=== PATIENT | female | born 1995 | race Caucasian/White ===

== ENCOUNTER 2017-04-13 10:35 | Outpatient (CLI) | payer OTHER ==
[~2017-04-13] VITALS: Ht 157.5 cm; Wt 51.8 kg
[2017-04-13 10:55] VITALS: BP 103/66; PULSE 73; TEMP 97.6
[2017-04-13] MEDS ORDERED: TOPAMAX 100MG100 M1 PO (11:02)
[2017-04-13] MEDS ORDERED: CALAN80 MG PO (11:03)
== END 2017-04-13 15:00 | disposition home or self-care (01) ==
LOC: COL.CAR 10:35
DX: R00.0 Tachycardia, unspecified (principal); J45.990 Exercise induced bronchospasm; Z80.0 Family history of malignant neoplasm of digestive organs; Z82.49 Family history of ischemic heart disease and other diseases of the circulatory system; Z82.3 Family history of stroke; Z80.1 Family history of malignant neoplasm of trachea, bronchus and lung

== ENCOUNTER 2018-01-25 06:29 | Day surgery (SDC) | payer OTHER ==
[~2018-01-25] VITALS: Ht 157.5 cm; Wt 52.8 kg
[~2018-01-25 06:29] MED LIST: CALAN80 MG PO; TOPAMAX 100MG100 M1 PO
[2018-01-25 06:59] VITALS: BP 117/87; PULSE 79; TEMP 97.1
[2018-01-25] MEDS ORDERED: CARDIZEM120 MG PO (07:07)
[2018-01-25] MEDS ORDERED: DEPO-PROVER150 MG/M1 IM (07:09)
[2018-01-25 07:55] VITALS: BP 111/58; PULSE 70; TEMP 97.8
[2018-01-25 08:10] VITALS: BP 93/76; PULSE 70
[2018-01-25 08:25] VITALS: BP 101/68; PULSE 71
== END 2018-01-25 08:44 | disposition home or self-care (01) ==
LOC: SDCO 06:29
DX: K59.00 Constipation, unspecified (principal); R19.7 Diarrhea, unspecified; J45.909 Unspecified asthma, uncomplicated; G43.909 Migraine, unspecified, not intractable, without status migrainosus; K58.9 Irritable bowel syndrome, unspecified; K44.9 Diaphragmatic hernia without obstruction or gangrene; E66.9 Obesity, unspecified; Z68.30 Body mass index [BMI] 30.0-30.9, adult; Z83.71 Family history of colonic polyps; Z83.79 Family history of other diseases of the digestive system
CPT/HCPCS: OP; J2250; J2405; J3010; J7030